=== PATIENT | male | born 1985 | race Caucasian/White ===

== ENCOUNTER 2020-06-09 14:42 | Emergency (ER) | payer OTHER ==
[~2020-06-09] VITALS: Ht 182.9 cm; Wt 90.7 kg
== END 2020-06-09 18:22 | disposition home or self-care (01) ==
LOC: ER 14:42
DX: S40.011A Contusion of right shoulder, initial encounter (principal); W18.39XA Other fall on same level, initial encounter; Y93.89 Activity, other specified; Y92.89 Other specified places as the place of occurrence of the external cause; Y99.8 Other external cause status

== ENCOUNTER 2020-06-14 10:06 | Outpatient (CLI) | payer OTHER | END 2020-06-14 10:41 | disposition home or self-care (01) | LOC: MRI 10:06 | DX: S49.91XA Unspecified injury of right shoulder and upper arm, initial encounter (principal) | CPT/HCPCS: 73221 ==